=== PATIENT | female | born 1995 | race Caucasian/White ===

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

== ENCOUNTER 2017-01-01 17:41 | Outpatient (CLI) | payer MEDICAID ==
--- NOTE | 2016-11-30 21:44 | PN ---
Date/Time of Note Date/Time of Note DATE: 11/30/16 TIME: 21:39 OB Subjective Subjective Subjective 21 Year-old with SIUP at 28 4/7 weeks presents with a chief complaint of possible LOF. She states good movement. She denies nausea, vomiting, shortness of breath, chest pain, and abdominal pain between contractions, headache, visual changes, vaginal bleeding. OB Objective Objective Objective General: Patient appears well, alert and oriented, NAD, appropriate mood and affect ABD: gravid, soft, non-tender. Back: No CVA tenderness (B/L) LE: No clubbing, cyanosis, edema, thigh or calf tenderness bilaterally FHT: 135 bpm , moderate variability with acceleration, no deceleration-category I Contractions: None Speculum exam: No vaginal bleeding or LOF. fibronectin collected SVE: closed/thick/high/cephalic/intact OB Assessment/Plan Other plan: 21 Year-old with SIUP at 28 4/7 weeks with possible SROM. Exam and AROM was negative, OB us performed, Ashlie of 18.4, CL:4.6 - FHR: No sign of metabolic acidosis- Category I - Continuous EFM, toco - Contractions: None. - Neg AROM and FFN - Reactive NST. - Symptoms and sign of labor, preeclampsia, kick count discussed with patient, she voiced understanding. All of her questions answered. - Patient was discharged home in stable condition with the appropriate discharge instructions provided. I would like patient to have close follow-up with her primary physician or outpatient clinic in 1-2 days or return to the ER for worsening symptoms or any other urgent concerns. TETO THOMSON Nov 30, 2016 21:44
[~2017-01-01] VITALS: Ht 157.5 cm; Wt 67.6 kg
[2017-01-01] MEDS ORDERED: CALC600T11 PO (17:58)
[2017-01-01] MEDS ORDERED: FERR325C PO (17:58)
[2017-01-01 17:59] VITALS: Ht 157.5 cm; Wt 67.6 kg
[2017-01-01] MEDS ORDERED: LACTATED RINGER'S 1,000 ML IV ONE (18:30)
[2017-01-01] MEDS: TERBUTALINE 1 MG/ML INJ SC PRN ×2 (18:54→19:47)
[2017-01-01 19:05] LABS: ADD SCAN DIFF NO
[2017-01-01 19:06] LABS: BASOPHIL # 0.1 10^3/ul (0.0-0.1); BASOPHILS % 0.6 % (0.0-2.0); EOSINOPHILS # 0.1 10^3/ul (0.0-0.5); EOSINOPHILS % 0.8 % (0.0-7.0); HEMATOCRIT 28.5 % (37.0-47.0); HEMOGLOBIN 9.7 g/dl (12.0-16.0); LYMPHOCYTES # 1.6 10^3/ul (0.8-2.9); LYMPHOCYTES % 19.1 % (18.0-55.0); MEAN CORPUSCULAR HEMOGLOBIN 28.9 pg (29.0-33.0); MEAN CORPUSCULAR VOLUME 84.8 fl (72.0-104.0); MEAN PLATELET VOLUME 10.5 fl (7.4-10.4); MONOCYTES % 11.1 % (0.0-13.0); NEUTROPHIL # 5.8 10^3/ul (1.6-7.5); NEUTROPHILS % 67.6 % (30.0-74.0); PLATELET COUNT 229 10^3/UL (140-415); RED BLOOD COUNT 3.36 10^6/ul (4.20-5.40); RED CELL DISTRIBUTION WIDTH 12.9 % (11.5-14.5); WHITE BLOOD COUNT 8.6 10^3/ul (4.8-10.8)
[2017-01-01 19:35] LABS: ADD UMIC YES; UR ASCORBIC ACID NEGATIVE (NEGATIVE); UR BACTERIA FEW /HPF (NONE SEEN); UR BILIRUBIN (Dip) NEGATIVE (NEGATIVE); UR BLOOD (Dip) NEGATIVE (NEGATIVE); UR CLARITY CLOUDY (CLEAR); UR COLOR YELLOW (YELLOW); UR GLUCOSE (Dip) 1+ mg/dL (NEGATIVE); UR KETONES (Dip) NEGATIVE (NEGATIVE); UR LEUKOCYTE ESTERASE (Dip) 3+ Leu/ul (NEGATIVE); UR NITRITE (Dip) NEGATIVE (NEGATIVE); UR RBC 3 /HPF (0-5); UR SPECIFIC GRAVITY (Dip) 1.015 (1.003-1.030); UR SQUAMOUS EPITHELIAL CELL MODERATE /HPF (FEW); UR TOTAL PROTEIN (Dip) NEGATIVE (NEGATIVE); UR UROBILINOGEN (Dip) NEGATIVE (NEGATIVE)
--- NOTE | 2017-01-01 21:32 | RADRPT ---
PROCEDURE: Limited obstetric ultrasound CLINICAL INDICATION: Pain TECHNIQUE: Multiple transverse and longitudinal grayscale images of the pelvis were obtained wihtfield sabdominally and transvaginally.. COMPARISON: 11/30/2016 FINDINGS: The cervix is closed with a length of 4.6 cm. There is a small Nabothian cyst in the cervix. There is a single viable intrauterine gestation. Cardiac activity is present with 152 beats per min arlene. There is a vertex presentation. The placenta is left lateral. There is no evidence for an abruption or placenta previa. RPTAT: AA IMPRESSION: Cervix length measures 4.6 cm. .Sekou Rothman MD, MD Date Time Electronically viewed and signed by .Sekou Rothman MD, on 01/01/2017 21:32 .S/
--- NOTE | 2017-01-01 22:42 | TRIAGE ---
OB Triage Datetime Report Generated by CPN: 01/01/2017 22:42 Datetime: 01/01/2017 22:00 Labor Evaluation Frequency: IRRITABILITY NOTED Monitor Mode: External Heart Rate FHR Baseline Rate: 145 FHR Baseline Changes: No Baseline Change Variability: Moderate 6-25 bpm Accelerations: 15X15 Decelerations: None Category: Category I Pain Presence: None/Denies Datetime: 01/01/2017 21:00 Labor Evaluation Frequency: IRRITABILITY NOTED Monitor Mode: External Heart Rate FHR Baseline Rate: 145 Monitor Mode: External US FHR Baseline Changes: No Baseline Change Variability: Moderate 6-25 bpm Accelerations: 15X15 Decelerations: None Category: Category I Datetime: 01/01/2017 20:00 Labor Evaluation Frequency: IRRITABILITY NOTED Monitor Mode: External Heart Rate FHR Baseline Rate: 145 Monitor Mode: External US FHR Baseline Changes: No Baseline Change Variability: Moderate 6-25 bpm Accelerations: 15X15 Decelerations: None Category: Category I Datetime: 01/01/2017 19:23 Comments: MATERNAL HR NOTED Datetime: 01/01/2017 18:55 Labor Evaluation Frequency: Irritability Monitor Mode: External Duration (sec)2399: 30-50 Quality: Mild Pattern: Normal: <= 5 Contractions in 10 Minutes Resting Tone [place]: Relaxed Heart Rate FHR Baseline Rate: 135 Monitor Mode: External US FHR Baseline Changes: No Baseline Change Variability: Moderate 6-25 bpm Accelerations: 15X15 Decelerations: None Category: Category I Pain Assessment Pain Scale: 9 Pain Presence: Intermittent Pain Type: Contraction; Pressure Pain Location: Abdomen; Back Pain Goal: 0 Pain Relief Measures: Comfort Measures Datetime: 01/01/2017 18:03 Time of Arrival: 01/01/2017 17:37 EGA: 33.1 Arrived By: Ambulatory Arrived From: Home Chief Complaint: UC Movement: Present Contractions: Denies/Absent Rupture of Membranes: Denies Vaginal Bleeding: Normal Show Vaginal Discharge: Denies Recent Sexual Intercouse: Denies Abdominal Trauma: Not Applicable Patient Complaints: Contractions Time Provider Notified: 01/01/2017 18:19 Provider Notified: Isidro Initial Plan: NST, BPP, IV hydration, Terbutaline 0.25mg subQ up to x2 doses, UA, CBC Datetime: 01/01/2017 17:42 Stage of : OB Triage Datetime: 11/30/2016 20:00 Labor Evaluation Frequency: 0 Monitor Mode: External Heart Rate FHR Baseline Rate: 135 Monitor Mode: External US FHR Baseline Changes: No Baseline Change Variability: Moderate 6-25 bpm Accelerations: 15X15 Decelerations: None Category: Category I Datetime: 11/30/2016 19:25 Maternal Assessment Level of Consciousness: Fully Conscious DTR's/Clonus: DTRs 2+; No Clonus Headache: Denies Blurred Vision: No Breath Sounds, Left: Clear and Equal Breath Sounds, Right: Clear and Equal Nausea/Vomiting: Denies RUQ Epigastric Pain: Denies Facial Edema: None Labor Evaluation Frequency: 0 Monitor Mode: External Duration (sec)2399: 0 Resting Tone [place]: Relaxed Heart Rate FHR Baseline Rate: 120 Monitor Mode: External US FHR Baseline Changes: No Baseline Change Variability: Moderate 6-25 bpm Accelerations: 15X15 Decelerations: None Category: Category I Pain Assessment Pain Scale: 0 Pain Presence: None/Denies Pain Type: N/A Pain Goal: 0 Membrane Status: Intact Datetime: 11/30/2016 19:22 Assessment Type: Triage Maternal Assessment Level of Consciousness: Fully Conscious DTR's/Clonus: DTRs 2+; No Clonus Headache: Denies Blurred Vision: No Respiratory Effort: Unlabored; Regular Rhythm; Equal Expansion Breath Sounds, Left: Clear and Equal Breath Sounds, Right: Clear and Equal Nausea/Vomiting: Denies RUQ Epigastric Pain: Denies Lower Extremities Edema: None Degree: None Upper Extremities Edema: None Degree: None Facial Edema: None Fall Risk Assessment History of Falling: (0) No Secondary Diagnosis: (0) No Ambulatory Aid: (0) Bedrest/Nurse Assist IV Therapy: (0) No Gait: (0) Normal/Bedrest/Immobile Mental Status: (0) Oriented to Own Ability Fall Score: 0 Fall Risk Score Definition: No Risk: No action required Datetime: 11/30/2016 18:49 Maternal Assessment Level of Consciousness: Fully Conscious DTR's/Clonus: DTRs 2+; No Clonus Headache: Denies Blurred Vision: No Nausea/Vomiting: Denies Labor Evaluation Frequency: 0 Monitor Mode: External Duration (sec)2399: 0 Quality: Mild Resting Tone [place]: Relaxed Heart Rate FHR Baseline Rate: 150 Monitor Mode: External US FHR Baseline Changes: No Baseline Change Variability: Moderate 6-25 bpm Accelerations: 15X15 Decelerations: None Category: Category I Membrane Status: Intact Datetime: 11/30/2016 18:23 Maternal Assessment Level of Consciousness: Fully Conscious DTR's/Clonus: DTRs 2+; No Clonus Headache: Denies Blurred Vision: No Nausea/Vomiting: Denies RUQ Epigastric Pain: Denies Facial Edema: None Labor Evaluation Frequency: 0 Monitor Mode: External Duration (sec)2399: 0 Resting Tone [place]: Relaxed Heart Rate FHR Baseline Rate: 120 Monitor Mode: External US FHR Baseline Changes: No Baseline Change Variability: Moderate 6-25 bpm Accelerations: 15X15 Decelerations: None Category: Category I Datetime: 11/30/2016 17:56 Maternal Assessment Level of Consciousness: Fully Conscious DTR's/Clonus: DTRs 2+; No Clonus Headache: Denies Blurred Vision: No Respiratory Effort: Unlabored Breath Sounds, Left: Clear and Equal Breath Sounds, Right: Clear and Equal Nausea/Vomiting: Denies RUQ Epigastric Pain: Denies Facial Edema: None Labor Evaluation Frequency: 0 Monitor Mode: External Duration (sec)2399: 0 Resting Tone [place]: Relaxed Heart Rate FHR Baseline Rate: 135 Monitor Mode: External US FHR Baseline Changes: No Baseline Change Variability: Moderate 6-25 bpm Accelerations: 15X15 Decelerations: None Category: Category I Pain Assessment Pain Scale: 0 Pain Presence: None/Denies Pain Type: N/A Pain Goal: 0 Membrane Status: Intact Datetime: 11/30/2016 17:37 Stage of : OB Triage Maternal Assessment Level of Consciousness: Fully Conscious DTR's/Clonus: DTRs 2+; No Clonus Headache: Denies Blurred Vision: No Respiratory Effort: Unlabored Breath Sounds, Left: Clear and Equal Breath Sounds, Right: Clear and Equal Nausea/Vomiting: Denies RUQ Epigastric Pain: Denies Facial Edema: None Labor Evaluation Frequency: 0 Monitor Mode: External Duration (sec)2399: 0 Pattern: Normal: <= 5 Contractions in 10 Minutes Resting Tone [place]: Relaxed Heart Rate FHR Baseline Rate: 130 Monitor Mode: External US FHR Baseline Changes: No Baseline Change Variability: Moderate 6-25 bpm Accelerations: 15X15 Decelerations: None Category: Category I Pain Assessment Pain Scale: 0 Pain Presence: None/Denies Pain Type: N/A Pain Goal: 0 Pain Relief Measures: Comfort Measures Membrane Status: Intact Datetime: 11/30/2016 17:25 Vaginal Exam Dilatation (cms): 0.0 Effacement (%): 50 Station: -3 Exam By: LYUDMILA FAULKNER Vaginal Bleeding: None Cervix, Consistency: Firm Cervix, Position: Posterior Presentation 'A': Unable to Assess Lie 'A': Unable to Assess Datetime: 11/30/2016 16:58 Maternal Assessment Level of Consciousness: Fully Conscious DTR's/Clonus: DTRs 2+; No Clonus Headache: Denies Blurred Vision: No Respiratory Effort: Unlabored Breath Sounds, Left: Clear and Equal Breath Sounds, Right: Clear and Equal Nausea/Vomiting: Denies RUQ Epigastric Pain: Denies Facial Edema: None Labor Evaluation Frequency: 0 Monitor Mode: External Duration (sec)2399: 0 Resting Tone [place]: Relaxed Heart Rate FHR Baseline Rate: 135 Monitor Mode: External US FHR Baseline Changes: No Baseline Change Variability: Moderate 6-25 bpm Accelerations: 15X15 Decelerations: None Category: Category I Pain Assessment Pain Scale: 0 Pain Presence: None/Denies Pain Type: N/A Pain Goal: 0 Pain Relief Measures: Comfort Measures Datetime: 11/30/2016 16:30 Time of Arrival: 11/30/2016 16:12 EGA: 28.4 Arrived By: Ambulatory Arrived From: Home Chief Complaint: R/O SROM Movement: Present Contractions: Denies/Absent Contractions: 0 Rupture of Membranes: Unsure Vaginal Bleeding: None Vaginal Discharge: Denies Recent Sexual Intercouse: Denies Abdominal Trauma: Not Applicable Patient Complaints: None Time Provider Notified: 11/30/2016 17:00 Provider Notified: SHAMSHIAN Datetime: 11/06/2016 20:02 Assessment Type: Triage Maternal Assessment Level of Consciousness: Fully Conscious DTR's/Clonus: DTRs 2+; No Clonus Headache: Denies Blurred Vision: No Respiratory Effort: Unlabored; Regular Rhythm; Equal Expansion Breath Sounds, Left: Clear and Equal Breath Sounds, Right: Clear and Equal Nausea/Vomiting: Denies RUQ Epigastric Pain: Denies Lower Extremities Edema: None Degree: None Upper Extremities Edema: None Degree: None Facial Edema: None Fall Risk Assessment History of Falling: (0) No Secondary Diagnosis: (0) No Ambulatory Aid: (0) Bedrest/Nurse Assist IV Therapy: (0) No Gait: (0) Normal/Bedrest/Immobile Mental Status: (0) Oriented to Own Ability Fall Score: 0 Fall Risk Score Definition: No Risk: No action required Datetime: 11/06/2016 18:48 Fall Score: 0 Fall Risk Score Definition: No Risk: No action required Datetime: 11/06/2016 18:46 EGA: 25.1 Datetime: 11/06/2016 18:45 Vaginal Bleeding: None Patient Complaints: None
--- NOTE | 2017-01-01 23:19 | PN ---
Triage Information Date/Time 01/01/2017 Weeks of Gestation 33 weeks and 1 day : 2 Para: 0 Diabetes: none Hypertention: none Additional information 21 years old with IUP at 33 weeks and 1 day presented with complaint of uterine contractions, Denies any LOF, vaginal bleeding or decreased movement, Objective Heart Rate: 130's Contractions: < 5 Minutes Apart Exam GA: A&O, NAD Abdomen: soft , gravid. non tender, no rebound tenderness. NST: Cat 1 Patient was noted to have irregular contraction. received 2 doses of Terbutaline. as well as IV hdration. Resolved CL: 4.6 cm Hematology - 72 Hrs Test 01/01/17 16:50 White Blood Count 8.610^3/ul (4.8-10.8) Red Blood Count 3.3610^6/ul (4.20-5.40) L Hemoglobin 9.7g/dl (12.0-16.0) L Hematocrit 28.5% (37.0-47.0) L Mean Corpuscular Volume 84.8fl (72.0-104.0) Mean Corpuscular Hemoglobin 28.9pg (29.0-33.0) L Mean Corpuscular Hemoglobin Concent 34.0g/dl (32.0-37.0) Red Cell Distribution Width 12.9% (11.5-14.5) Platelet Count 56623^3/UL (140-415) Mean Platelet Volume 10.5fl (7.4-10.4) #H Neutrophils % 67.6% (30.0-74.0) Lymphocytes % 19.1% (18.0-55.0) Monocytes % 11.1% (0.0-13.0) Eosinophils % 0.8% (0.0-7.0) Basophils % 0.6% (0.0-2.0) Nucleated Red Blood Cells % 0.0/100WBC (0.0-0.0) Neutrophils # 5.810^3/ul (1.6-7.5) Lymphocytes # 1.610^3/ul (0.8-2.9) Monocytes # 1.010^3/ul (0.3-0.9) H Eosinophils # 0.110^3/ul (0.0-0.5) Basophils # 0.110^3/ul (0.0-0.1) Nucleated Red Blood Cells # 0.010^3/ul (0.0-0.0) Results/Medications Result Diagram: 01/01/17 1650 Results 24 hrs Laboratory Tests Test 01/01/17 16:50 White Blood Count 8.6 Red Blood Count 3.36 L Hemoglobin 9.7 L Hematocrit 28.5 L Mean Corpuscular Volume 84.8 Mean Corpuscular Hemoglobin 28.9 L Mean Corpuscular Hemoglobin Concent 34.0 Red Cell Distribution Width 12.9 Platelet Count 229 Mean Platelet Volume 10.5 #H Neutrophils % 67.6 Lymphocytes % 19.1 Monocytes % 11.1 Eosinophils % 0.8 Basophils % 0.6 Nucleated Red Blood Cells % 0.0 Neutrophils # 5.8 Lymphocytes # 1.6 Monocytes # 1.0 H Eosinophils # 0.1 Basophils # 0.1 Nucleated Red Blood Cells # 0.0 Urine Color YELLOW Urine Clarity CLOUDY A Urine pH 6.0 Urine Specific [place] 1.015 Urine Ketones NEGATIVE Urine Nitrite NEGATIVE Urine Bilirubin NEGATIVE Urine Urobilinogen NEGATIVE Urine Leukocyte Esterase 3+ H Urine Microscopic RBC 3 Urine Microscopic WBC 39 H Urine Squamous Epithelial Cells MODERATE Urine Bacteria FEW A Urine Hemoglobin NEGATIVE Urine Glucose 1+ H Urine Total Protein NEGATIVE Imaging Results PROCEDURE: Limited obstetric ultrasound CLINICAL INDICATION: Pain TECHNIQUE: Multiple transverse and longitudinal grayscale images of the pelvis were obtained transabdominally and transvaginally.. COMPARISON: 11/30/2016 FINDINGS: The cervix is closed with a length of 4.6 cm. There is a small Nabothian cyst in the cervix. There is a single viable intrauterine gestation. Cardiac activity is present with 152 beats per minute. There is a vertex presentation. The placenta is left lateral. There is no evidence for an abruption or placenta previa. RPTAT: AA IMPRESSION: Cervix length measures 4.6 cm. Assessment/Plan IUP at 33 weeks and 1 day contractions, resolved with IV hydration and terbutaline. symptoms due to UTI. NST appropriate for GA. DC home Advised about adequate PO hydration Keflex 500 mg PO QID x 7 days labor precaution and kick counts discussed. Urine culture sent Follow up with her OB office next week MYRIAM LAKE MD Jan 01, 2017 23:19
== END 2017-01-01 22:01 | disposition home or self-care (01) ==
LOC: OBT 17:41 → L-D 17:41 → OBT 22:01
PROVIDERS: ATTEND Obstetrics & Gynecology
DX: O62.9 Abnormality of forces of labor, unspecified (principal); Z3A.33 33 weeks gestation of pregnancy
CPT/HCPCS: 36415; 76817; 81001; 85025; 96360; 96361; 96372; J3105; J7120; Z7500; G0463

== ENCOUNTER 2017-02-07 00:07 | Outpatient (CLI) | payer MEDICAID ==
[~2017-02-07] VITALS: Ht 158.8 cm; Wt 71.7 kg
[~2017-02-07 00:07] MED LIST changes: +CALC600T11 PO; +FERR325C PO
--- NOTE | 2017-02-07 00:11 | TRIAGE ---
OB Triage Datetime Report Generated by CPN: 02/07/2017 00:11 Datetime: 01/01/2017 18:03 EGA: 33.1 Datetime: 11/30/2016 19:22 Fall Risk Assessment Fall Score: 0 Fall Risk Score Definition: No Risk: No action required Datetime: 11/30/2016 16:30 EGA: 28.4 Datetime: 11/06/2016 20:02 Fall Risk Assessment Fall Score: 0 Fall Risk Score Definition: No Risk: No action required Datetime: 11/06/2016 18:48 Fall Risk Assessment Fall Score: 0 Fall Risk Score Definition: No Risk: No action required Datetime: 11/06/2016 18:46 EGA: 25.1
[2017-02-07] MEDS ORDERED: ACET500C5 PO (00:16)
[2017-02-07 00:22] VITALS: BP 120/71
[2017-02-07 01:00] VITALS: Ht 158.8 cm; Wt 71.7 kg
--- NOTE | 2017-02-07 02:47 | RADRPT ---
PROCEDURE: OB ultrasound for biophysical profile CLINICAL INDICATION: Contractions. TECHNIQUE: Multiple sonographic images of the gravid uterus performed. The images were reviewed on a PACS workstation. COMPARISON: 11/30/2016 FINDINGS: A single live intrauterine is identified with heart rate of 136 bpm. Fet us is in a cephalic presentation. Placenta is located fundal. Biophysical profile: breathing movement = 2/2 tone = 2/2 motion = 2/2 MARY = 2/2 MARY = 12.2 cm. IMPRESSION: 1. Single live intrauterine gestation. 2. Biophysical profile = 8/8. 3. MARY = 12.2 cm. RPTAT: HMVK .Mauricio Cordova MD, Date Time Electronically viewed and signed by .Mauricio Cordova MD, MD on 02/07/2017 02:47 .K/
--- NOTE | 2017-02-07 02:51 | RADRPT ---
PROCEDURE: US OB. CLINICAL INDICATION: Contractions. TECHNIQUE: Multiple sonographic images of the pelvis were obtained. Transabdominal imaging only w as performed. The images were reviewed on a PACS workstation. COMPARISON: 11/30/2016. FINDINGS: Single live intrauterine is identified. Cardiac activity is present with 146 beats per mi nute. There is a vertex presentation. Measurements: BPD = 37 weeks 1 day. HC = 37 weeks 5 days. AC = 37 weeks 4 days. FL = 38 weeks 1 day. Estimated gestational age of approximately 37 weeks 5 days. The estimated date of delivery is 02/23/2017. The EFW = 3279 g which is at the 49th percentile. The placenta is fundal. There is no evidence for an abruption or placenta previa. IMPRESSION: Single live intrauterine gestation of approximately 37 weeks 5 days. RPTAT: HMVK .Mauricio Cordova MD, Date Time Electronically viewed and signed by .Mauricio Cordova MD, on 02/07/2017 02:51 .K/
--- NOTE | 2017-02-07 03:57 | PN ---
Triage Information Date/Time February 07, 2017 Reason for visit: fever Weeks of Gestation 38w 2d /Para 2/0 Hypertention: none Additional information Pt has a URI with fever,cough. Contractions are fairly mild, per pt. PMHx: none. PSHx: none. NKDA. Objective Vital Signs Date Time Temp Pulse Resp B/P Pulse Ox O2 Delivery O2 Flow Rate FiO2 02/07/17 00:22 98.2 86 120/71 Room Air Heart Rate: 120's Heart Rate Comments Accels to 160 bpm. One decel after a UC but never had another one. Contractions: >10 Minutes Apart Exam closed/thick/high. Results/Medications Imaging Results BPP 02/02 with an MARY of 12.2. VTX. EFW 3279 grams. Disposition: Discharge Assessment/Plan A: IUP at 38w 2d. False labor. URI. P: D/C home with labor precautions. LINDY MCKINNEY MD Feb 07, 2017 03:57
--- NOTE | 2017-02-07 04:54 | TRIAGE ---
OB Triage Datetime Report Generated by CPN: 02/07/2017 04:54 Datetime: 02/07/2017 03:47 Frequency: OCC Monitor Mode: External Duration (sec)2399: 60-150 Quality: Mild Pattern: Normal: <= 5 Contractions in 10 Minutes Resting Tone [place]: Relaxed Contraction Comments: NOTED 3 UC'S FHR Baseline Rate: 125 Monitor Mode: External US Variability: Moderate 6-25 bpm Accelerations: 15X15 Decelerations: None Category: Category I Datetime: 02/07/2017 02:03 Frequency: OCC Monitor Mode: External Duration (sec)2399: 60-150 Quality: Mild Pattern: Normal: <= 5 Contractions in 10 Minutes Resting Tone [place]: Relaxed Contraction Comments: NOTED 2 UC'S FHR Baseline Rate: 120 Monitor Mode: External US Variability: Moderate 6-25 bpm Accelerations: 15X15 Decelerations: Late (Annotations: NOTED X1) Category: Category II Datetime: 02/07/2017 01:31 Monitor Mode: External US Datetime: 02/07/2017 00:57 Frequency: 8-9 Monitor Mode: External Duration (sec)2399: 50-80 Quality: Mild Pattern: Normal: <= 5 Contractions in 10 Minutes Resting Tone [place]: Relaxed FHR Baseline Rate: 125 Monitor Mode: External US Variability: Moderate 6-25 bpm Accelerations: 15X15 Decelerations: None Category: Category I Dilatation (cms): 0.0 Effacement (%): 0 Station: -3 Exam By: Shante SWIFT RN Datetime: 02/07/2017 00:51 Level of Consciousness: Fully Conscious DTR's/Clonus: DTRs 2+; No Clonus Headache: Denies Blurred Vision: No Respiratory Effort: Unlabored; Regular Rhythm; Equal Expansion Breath Sounds, Left: Clear and Equal Breath Sounds, Right: Clear and Equal Nausea/Vomiting: Denies RUQ Epigastric Pain: Denies Lower Extremities Edema: None Degree: None Upper Extremities Edema: None Degree: None Facial Edema: None History of Falling: (0) No Secondary Diagnosis: (0) No Ambulatory Aid: (0) Bedrest/Nurse Assist IV Therapy: (0) No Gait: (0) Normal/Bedrest/Immobile Mental Status: (0) Oriented to Own Ability Fall Score: 0 Fall Risk Score Definition: No Risk: No action required Datetime: 02/07/2017 00:18 Time of Arrival: 01/31/2017 00:03 EGA: 37.2 Arrived By: Ambulatory Arrived From: Home Chief Complaint: UC's, cold symptoms X3 days. Movement: Present Contractions: Irregular Rupture of Membranes: Denies Vaginal Bleeding: None Vaginal Discharge: Denies Recent Sexual Intercouse: Denies Abdominal Trauma: Not Applicable Patient Complaints: Contractions; Nausea; Vomiting; Fever; Cough Initial Plan: MONITORING _ SVE Datetime: 01/01/2017 18:03 EGA: 33.0 Datetime: 11/30/2016 19:22 Fall Score: 0 Fall Risk Score Definition: No Risk: No action required Datetime: 11/30/2016 16:30 EGA: 28.3 Datetime: 11/06/2016 20:02 Fall Score: 0 Fall Risk Score Definition: No Risk: No action required Datetime: 11/06/2016 18:48 Fall Score: 0 Fall Risk Score Definition: No Risk: No action required Datetime: 11/06/2016 18:46 EGA: 25.0
== END 2017-02-07 04:30 | disposition home or self-care (01) ==
LOC: OBT 00:07 → L-D 00:08 → OBT 04:30
PROVIDERS: ATTEND Obstetrics & Gynecology
DX: O98.813 Other maternal infectious and parasitic diseases complicating pregnancy, third trimester (principal); Z3A.38 38 weeks gestation of pregnancy; J06.9 Acute upper respiratory infection, unspecified
CPT/HCPCS: 76815; 76818; Z7500; G0463

== ENCOUNTER 2017-02-19 00:25 | Inpatient (IN) | payer MEDICAID ==
[~2017-02-19] VITALS: Ht 157.5 cm; Wt 72.3 kg
[~2017-02-19 00:25] MED LIST changes: +ACET500C5 PO
[2017-02-19 01:11] VITALS: BP 116/61; PULSE 75; RESP 18; Ht 157.5 cm; Wt 72.3 kg
[2017-02-19] MEDS ORDERED: LIDOCAINE 1% (MPF) 30 ML INJ INJ PRN (01:30)
[2017-02-19] MEDS ORDERED: BUTORPHANOL 2 MG INJ IV PRN (01:30)
[2017-02-19] MEDS ORDERED: LACTATED RINGER'S 1,000 ML IV PRN (01:30)
[2017-02-19] MEDS ORDERED: METHYLERGONOVINE 0.2 MG INJ IM PRN ×2 (01:30→18:00)
[2017-02-19] MEDS ORDERED: CARBOPROST 250 MCG INJ IM PRN ×2 (01:30→18:00)
[2017-02-19] MEDS ORDERED: OXYTOCIN 30 UNITS/LR 500 ML IV SCH ×3 (01:30→07:00)
[2017-02-19] MEDS ORDERED: IBUPROFEN 600 MG TAB PO PRN (01:30)
[2017-02-19] MEDS ORDERED: MISOPROSTOL 200 MCG TAB PR PRN ×2 (01:30→18:00)
[2017-02-19] MEDS ORDERED: OXYTOCIN 30 UNITS/LR 500 ML IV PRN ×2 (01:30→18:00)
[2017-02-19] MEDS ORDERED: AMPICILLIN 2 GM/NS (PMX) 100 ML IV ONE (01:30)
[2017-02-19 02:30] LABS: BASOPHILS % 0.4 % (0.0-2.0); EOSINOPHILS # 0.1 10^3/ul (0.0-0.5); EOSINOPHILS % 1.5 % (0.0-7.0); HEMATOCRIT 33.5 % (37.0-47.0); HEMOGLOBIN 11.4 g/dl (12.0-16.0); LYMPHOCYTES # 2.2 10^3/ul (0.8-2.9); LYMPHOCYTES % 24.5 % (18.0-55.0); MEAN CORPUSCULAR HEMOGLOBIN 28.8 pg (29.0-33.0); MEAN CORPUSCULAR VOLUME 84.6 fl (72.0-104.0); MEAN PLATELET VOLUME 10.8 fl (7.4-10.4); MONOCYTE # 0.9 10^3/ul (0.3-0.9); MONOCYTES % 9.4 % (0.0-13.0); NEUTROPHILS % 63.3 % (30.0-74.0); PLATELET COUNT 258 10^3/UL (140-415); RED BLOOD COUNT 3.96 10^6/ul (4.20-5.40); RED CELL DISTRIBUTION WIDTH 14.9 % (11.5-14.5); WHITE BLOOD COUNT 9.1 10^3/ul (4.8-10.8)
[2017-02-19] MEDS: LACTATED RINGER'S 1,000 ML IV SCH ×3 (02:31→13:27)
[2017-02-19 02:45] LABS: INR 0.91; PROTIME 12.2 Sec (12.2-14.2)
[2017-02-19] MEDS: AMPICILLIN 1 GM/NS (PMX) 50 ML IV SCH ×2 (06:22→09:30)
[2017-02-19] MEDS ORDERED: FENTAnyl 2MCG/ML-ROPIV 0.2% 100 ML ONE ×2 (10:16→10:17)
[2017-02-19] MEDS ORDERED: DIPHENHYDRAMINE 50 MG INJ IV PRN (12:00)
[2017-02-19] MEDS ORDERED: FENTAnyl 2MCG/ML-ROPIV 0.2% 100 ML BAG EPI SCH (12:00)
[2017-02-19] MEDS ORDERED: NALOXONE (0.4 MG/ML) INJ IV PRN (12:00)
[2017-02-19] MEDS ORDERED: ONDANSETRON 4 MG INJ IV PRN (12:00)
[2017-02-19] MEDS ORDERED: TERBUTALINE 1 ML ONE (12:25)
[2017-02-19] MEDS ORDERED: TERBUTALINE 1 MG/ML INJ SC ONE (13:00)
--- NOTE | 2017-02-19 14:48 | HP ---
Date/Time of Note Date/Time of Note DATE: 02/19/17 TIME: 14:47 OB - History Hx of Present Free Text/Dictation in labor Care: Good Care Ultrasounds: Normal mid trimester US Obstetrical Complications: None Medical Complications: None Past Family/Social History * Past Medical, Surgical, Family and Obstetric Histories reviewed from chart. OB Admission Exam Vital Signs Vital Signs Vital Signs Date Time Temp Pulse Resp B/P Pulse Ox O2 Delivery O2 Flow Rate FiO2 02/19/17 01:11 98.3 75 18 116/61 Room Air Physical Exam HEENT: WNL Heart: Rhythm Normal Lungs: Clear, Equal Abdomen: WNL Extremities: Normal Reflexes: Normal Cervical Dilatation: 10cm Effacement: 100% Station: +2 Membranes: Ruptured Amniotic Fluid: Clear Heart Rate: 130's Accelerations: Accelerations Present Decelerations: Early Decelerations Varibility: Moderate Last 72 hours Lab Results CBC & BMP 02/19/17 02:10 OB Assessment/Plan Reason for admission: active labor Plan: Expectant Management MARY SINGLETON MD Feb 19, 2017 14:48
--- NOTE | 2017-02-19 14:49 | LDN ---
Date/Time of Note Date/Time of Note DATE: 02/19/17 TIME: 14:48 Delivery Summary nsd Placenta Delivered: Spontaneously Meconium: none Episiotomy: No Anesthesia type: Epidural Estimated blood loss: 300 Sponge & Needle done & correct: Yes All needle counts correct: Yes Problems: MARY SINGLETON MD Feb 19, 2017 14:49
[2017-02-19 17:45] VITALS: BP 145/89; PULSE 69; RESP 20
[2017-02-19] MEDS ORDERED: LACTATED RINGER'S 1,000 ML IV* SCH (17:59)
[2017-02-19] MEDS ORDERED: LANOLIN 7 GM TUBE TOP PRN (18:00)
[2017-02-19] MEDS ORDERED: ZOLPIDEM 5 MG TAB PO PRN (18:00)
[2017-02-19] MEDS ORDERED: DIPHENHYDRAMINE 25 MG CAP PO PRN (18:00)
[2017-02-19] MEDS ORDERED: SENNA/DOCUSATE NA (8.6MG/50MG) TAB PO PRN (18:00)
[2017-02-19] MEDS ORDERED: WITCH HAZEL/GLYCERIN PAD PR PRN (18:00)
[2017-02-19] MEDS ORDERED: BENZOCAINE 20% 56 ML SPRAY TOP PRN (18:00)
[2017-02-19] MEDS ORDERED: MAGNESIUM HYDROXIDE 30ML CUP PO PRN (18:00)
[2017-02-19 18:30] VITALS: BP 135/75; PULSE 68; RESP 20
[2017-02-19] MEDS: IBUPROFEN 800 MG TAB PO SCH (18:37)
[2017-02-19] MEDS: OXYTOCIN 30 UNITS/LR 500 ML IV SCH ×2 (18:45→21:59)
[2017-02-19 18:50] VITALS: BP 126/80; PULSE 69; RESP 20
[2017-02-19 19:45] VITALS: BP 106/59; PULSE 70; RESP 20
[2017-02-19] MEDS: HYDROCODONE/APAP (5/325) TAB PO PRN (21:34)
[2017-02-20 04:30] VITALS: BP 96/55; PULSE 76; RESP 18
[2017-02-20] MEDS: IBUPROFEN 800 MG TAB PO SCH ×4 (06:22→17:40)
[2017-02-20 07:41] LABS: BASOPHIL # 0.1 10^3/ul (0.0-0.1); BASOPHILS % 0.4 % (0.0-2.0); EOSINOPHILS # 0.1 10^3/ul (0.0-0.5); EOSINOPHILS % 0.7 % (0.0-7.0); HEMATOCRIT 34.3 % (37.0-47.0); HEMOGLOBIN 11.5 g/dl (12.0-16.0); LYMPHOCYTES # 1.8 10^3/ul (0.8-2.9); LYMPHOCYTES % 12.3 % (18.0-55.0); MEAN CORPUSCULAR HGB CONC 33.5 g/dl (32.0-37.0); MEAN CORPUSCULAR VOLUME 86.4 fl (72.0-104.0); MEAN PLATELET VOLUME 10.8 fl (7.4-10.4); MONOCYTE # 1.2 10^3/ul (0.3-0.9); MONOCYTES % 7.9 % (0.0-13.0); NEUTROPHILS % 77.9 % (30.0-74.0); PLATELET COUNT 222 10^3/UL (140-415); RED BLOOD COUNT 3.97 10^6/ul (4.20-5.40); RED CELL DISTRIBUTION WIDTH 15.3 % (11.5-14.5); WHITE BLOOD COUNT 14.9 10^3/ul (4.8-10.8)
[2017-02-20 08:00] VITALS: BP 121/71; PULSE 74; RESP 17
[2017-02-20] MEDS: ACETAMINOPHEN 325 MG TAB PO PRN ×2 (09:20→13:23)
[2017-02-20 12:00] VITALS: BP 119/54; PULSE 68; RESP 18
[2017-02-20 16:00] VITALS: BP 110/52; PULSE 66; RESP 18
[2017-02-20 19:50] VITALS: BP 136/78; PULSE 61; RESP 18
[2017-02-20] MEDS: HYDROCODONE/APAP (5/325) TAB PO PRN (20:58)
[2017-02-21] MEDS: IBUPROFEN 800 MG TAB PO SCH ×3 (00:13→12:12)
[2017-02-21] MEDS: HYDROCODONE/APAP (5/325) TAB PO PRN (03:04)
[2017-02-21 08:00] VITALS: BP 119/63; PULSE 69; RESP 18
[2017-02-21] MEDS ORDERED: VARICELLA VACCINE LIVE/PF 1,350 UNIT/0.5 ML ML SC* ONE (09:00)
[2017-02-21] MEDS ORDERED: DIPHTH/TET/ACEL PERTUSS (ADULT) 0.5 ML VIAL IM* ONE (09:00)
[2017-02-21] MEDS ORDERED: MEASLES,MUMPS,RUBELLA VACCINE INJ SC* ONE (09:00)
--- NOTE | 2017-02-21 12:39 | DS ---
Date/Time of Note Date/Time of Note DATE: 02/21/17 TIME: 12:39 Obstetrical Discharge Record Final Diagnosis Final Diagnosis: Term delivered Vaginal Delivery Obstetrical Delivery: Spontaneous Condition on Discharge Physical Assessment Voiding: Yes Bowel Movement: Yes Breast: Soft, non-tender Fundus: Firm Calf Tenderness: No Patient Condition: Stable OLEG CHIU MD Feb 21, 2017 12:39
== END 2017-02-21 15:10 | disposition home or self-care (01) | DRG 775 ==
LOC: L-D 00:25 → OBT 00:25 → L-D 01:15 → PP1 17:25
PROVIDERS: ADMIT Obstetrics & Gynecology; ATTEND Obstetrics & Gynecology
PROC: 10E0XZZ Delivery of Products of Conception, External Approach (ICD-10-PCS; principal; 2017-02-19)
PROC: 3E033VJ Introduction of Other Hormone into Peripheral Vein, Percutaneous Approach (ICD-10-PCS; 2017-02-19)
DX: O80 Encounter for full-term uncomplicated delivery (principal); Z37.0 Single live birth; Z3A.39 39 weeks gestation of pregnancy
CPT/HCPCS: 62319; 85025; 85610; 85730; 86592; 86900; 86901; 87340; 94760; G0463; J0290; J2590; J3010; J3105; J7120

== ENCOUNTER 2017-02-23 20:11 | Emergency (ER) | payer SELFPAY | END 2017-02-24 02:08 | disposition left against medical advice (07) | LOC: E/R 20:11 | DX: Z53.21 Procedure and treatment not carried out due to patient leaving prior to being seen by health care provider (principal) ==